=== PATIENT | male | born 1975 | race Two or more races ===

== ENCOUNTER 2017-02-10 13:18 | Emergency (ER) | payer MEDICAID ==
[~2017-02-10] VITALS: Ht 167.6 cm; Wt 73.0 kg
[~2017-02-10 13:18] MED LIST: ALLO100T PO; AMLO2.5T45 PO; ATEN100T PO; CHOL100026 PO; FERR-63 PO; HYDR10SY11 PO; LIP40 PO; LOSA100T14 PO; SEVE800T8 PO; TEMA15CA PO
[2017-02-10 19:38] VITALS: BP 189/108
== END 2017-02-10 19:48 | disposition home or self-care (01) ==
LOC: ER 16:15
DX: M79.89 Other specified soft tissue disorders (principal); I12.0 Hypertensive chronic kidney disease with stage 5 chronic kidney disease or end stage renal disease; E11.22 Type 2 diabetes mellitus with diabetic chronic kidney disease; N18.6 End stage renal disease; Z99.2 Dependence on renal dialysis
CPT/HCPCS: 93971; 99284; Z7610

== ENCOUNTER 2019-08-06 10:47 | Emergency (ER) | payer MEDICAID ==
[~2019-08-06] VITALS: Ht 170.2 cm; Wt 67.0 kg
[~2019-08-06 10:47] MED LIST changes: -CHOL100026 PO; +CHOL100044 PO; -LOSA100T14 PO; +LOSA100T32 PO
[2019-08-06 11:28] LABS: BASOPHILS % 1.3 % (0.0-2.0); EOSINOPHILS % 3.5 % (0.0-5.0); HEMOGLOBIN. 9.4 g/dL (14.0-18.0); LYMPHOCYTES % 21.3 % (20.0-50.0); MEAN CORPUSCULAR HEMOGLOBIN 29.9 pg (28.0-32.0); MEAN CORPUSCULAR VOLUME 91.8 fL (80.0-94.0); MEAN PLATELET VOLUME 8.2 fl (7.4-10.4); MONOCYTES % 8.7 % (2.0-8.0); NEUTROPHILS % 65.2 % (40.0-76.0); PLATELET 240 x1000/uL (130-400); RED BLOOD CELL COUNT 3.16 mill/uL (4.7-6.1); RED CELL DISTRIBUTION WIDTH 16.4 % (11.6-14.6)
[2019-08-06 11:34] LABS: CHLORIDE 99 mEq/L (98-107)
[2019-08-06] MEDS ORDERED: LEVOFLOXACIN 750MG PREMIX 150 ML IV ONE (13:15)
[2019-08-06] MEDS ORDERED: MAGNESIUM/ALUMINUM HYDROXIDE/SIMETHICONE 30ML UDC PO PRN (13:45)
[2019-08-06] MEDS ORDERED: ONDANSETRON HCL 4MG/2ML INJ IV PRN (13:45)
[2019-08-06] MEDS ORDERED: ACETAMINOPHEN 325MG TABLET PO PRN (13:45)
[2019-08-06] MEDS ORDERED: DOCUSATE SODIUM 100MG CAPSULE PO PRN (13:45)
[2019-08-06] MEDS ORDERED: DIPHENHYDRAMINE 50MG/ML VIAL IV PRN (13:45)
[2019-08-06] MEDS ORDERED: IPRATROPIUM/ALBUTEROL 0.5-3(2.5)MG/3ML NEB HHN PRN (13:45)
[2019-08-06] MEDS ORDERED: CLONIDINE 0.1MG TABLET PO PRN (13:45)
[2019-08-06] MEDS ORDERED: GUAIFENESIN 200MG/10ML SUGAR FREE UDC PO PRN (13:45)
[2019-08-06] MEDS ORDERED: CEFTRIAXONE 1 G PREMIX 50 ML IV SCH (14:00)
[2019-08-06] MEDS ORDERED: AZITHROMYCIN 500 MG in DEXT 5% WATER 250 ML IV SCH (14:00)
[2019-08-06 14:14] LABS: PHOSPHORUS 2.4 mg/dL (2.5-4.9)
[2019-08-06] MEDS ORDERED: ONDANSETRON HCL 4MG/2ML INJ IV STA ×2 (14:54→16:13)
[2019-08-06] MEDS ORDERED: MORPHINE SULFATE 4 MG/ML CPJ (NOT FOR IM USE) IV STA ×2 (14:54→16:13)
[2019-08-06] MEDS ORDERED: IOHEXOL-350 100 ML BOTTLE ONE (15:02)
[2019-08-06 15:55] LABS: INR 1.1; PARTIAL THROMBOPLASTIN TIME 29.5 sec (23.4-31.0); PROTHROMBIN TIME 11.4 sec (9.6-11.0)
[2019-08-06 15:56] LABS: CREATINE KINASE MB FRACTION 46.1 ng/mL (0.5-3.6)
[2019-08-06] MEDS ORDERED: SEVELAMER CARBONATE 800 MG TABLET PO SCH (17:00)
[2019-08-06] MEDS ORDERED: INSULIN LISPRO 100 UNITS/ML SUBCUT SCH (17:50)
[2019-08-06] MEDS ORDERED: ATORVASTATIN CALCIUM 20MG TABLET PO SCH (21:00)
[2019-08-06] MEDS ORDERED: INSULIN GLARGINE UD 100 UNITS/ML SYR SUBCUT SCH (22:00)
[2019-08-06 23:10] VITALS: BP 135/82
[2019-08-07] MEDS ORDERED: CINACALCET HCL 90MG TABLET PO SCH (09:00)
[2019-08-07] MEDS ORDERED: ALLOPURINOL 100 MG TABLET PO SCH (09:00)
[2019-08-07] MEDS ORDERED: AMLODIPINE 10MG TABLET PO SCH (09:00)
[2019-08-07] MEDS ORDERED: LOSARTAN POTASSIUM 100 MG TABLET PO SCH (09:00)
== END 2019-08-07 00:30 | disposition short-term general hospital (02) ==
LOC: ER 10:47 → EDBEDREQ 13:12 → EDBEDREQSVC 13:13 → EDBEDREQ 13:45 → ENRESERV 13:47 → CANRESERV 13:47 → EDBEDREQTM 13:56 → EDBEDREQSVC 13:56 → CANBEDREQ 15:32 → ER 08-07 00:30
DX: S27.892A Contusion of other specified intrathoracic organs, initial encounter (principal); R07.89 Other chest pain; J18.9 Pneumonia, unspecified organism; X58.XXXA Exposure to other specified factors, initial encounter; Y93.89 Activity, other specified; Y92.89 Other specified places as the place of occurrence of the external cause; Y99.8 Other external cause status; E11.9 Type 2 diabetes mellitus without complications; I10 Essential (primary) hypertension; Z98.890 Other specified postprocedural states; Z79.899 Other long term (current) drug therapy
CPT/HCPCS: 36415; 71045; 71275; 80053; 82550; 82553; 83735; 83880; 84100; 84484; 85025; 85610; 85730; 86850; 86900; 86901; 93005; 93970; 96365; 96375; 96376; 99291; J1956; J2270; J2405; Q9967